=== PATIENT | female | born 2005 | race Caucasian/White ===

== ENCOUNTER 2025-04-10 14:11 | Outpatient (CLI) | payer MEDICARE, BC, MEDICAID ==
--- NOTE | 2025-04-10 15:30 | RADIOLOGY REPORT ---
ULTRASOUND SOFT TISSUE HEAD AND NECK CLINICAL INDICATION: THYROID GOITER TECHNIQUE: Multiple real time sonographic images of the thyroid were obtained. Comparison: None FINDINGS: The right thyroid gland measures 3.8 x 1.3 x 1.5 cm. The left thyroid gland measures approximately 4.0 x 1.5 x 1.5 cm. The isthmus measures 0.2 cm. IMPRESSION: 1. Normal Thyroid. [employer] TI-RADS Categories and Recommendations (2017): TR1: 0 points, Benign, No FNA TR2: 2 points, Not suspicious, No FNA TR3: 3 points, Mildly suspicious, FNA if > or = 2.5 cm, Follow if > or = 1.5 cm TR4: 4-6 points, Moderately Suspicious, FNA if > or = 1.5 cm, Follow if > or = 1.0 cm TR5: 7+ points, Highly Suspicious, FNA if > or = 1.0 cm, Follow if > or = 0.5 cm Follow-up ultrasound guidelines: TR5: yearly for 5 years, if no growth or change in TI-RADS level TR4: at 1, 2, 3 and 5 years, if no growth or change in TI-RADS level TR3: at 1, 3 and 5 years, if no growth or change in TI-RADS level If increased but below threshold for FNA, repeat in one year. Source: [employer] Thyroid Imaging, Reporting and Data System (TI-RADS): White Paper of the [employer] TI-RADS Committee. Camila krueger al., J Am [place] Radiol 2017;14:587-595.
== END 2025-04-10 23:59 | disposition home or self-care (01) ==
LOC: RAD 14:11
PROVIDERS: ATTEND Nurse Practitioner Family
DX: E04.9 Nontoxic goiter, unspecified (principal)
CPT/HCPCS: 76536